=== PATIENT | female | born 1995 | race African-American/Black ===

== ENCOUNTER 2025-04-26 00:44 | Emergency (ER) | payer MEDICAID ==
[~2025-04-26] VITALS: Ht 162.6 cm; Wt 88.0 kg
[2025-04-26 01:07] VITALS: O2SAT 100
[2025-04-26] MEDS: CEFTRIAXONE SODIUM 500MG VIAL IM ONE (02:02)
[2025-04-26] MEDS ORDERED: HYDR28CR97 TP (03:21)
[2025-04-26] MEDS ORDERED: DOXY100C5 MT (03:21)
[2025-04-26 03:29] LABS: CLARITY URINE CLEAR (CLEAR); COLOR URINE YELLOW (YELLOW); GLUCOSE URINE NEGATIVE (NEGATIVE); KETONES URINE 2+ (NEGATIVE); LEUKOCYTE ESTERASE URINE NEGATIVE (NEGATIVE); NITRITE URINE NEGATIVE (NEGATIVE); OCCULT BLOOD URINE NEGATIVE (NEGATIVE); PH URINE 5.5 (4.5-8.0); PROTEIN URINE NEGATIVE (NEGATIVE); SPECIFIC GRAVITY URINE 1.010 (1.005-1.030); UROBILINOGEN URINE 1.0 E.U./dL (0.2-1.0)
[2025-04-26 03:58] VITALS: BP 144/100; PULSE 71; RESP 16; TEMP 36.7; O2SAT 99
[2025-04-29 04:07] LABS: CHLAMYDIA TRACHOMATIS NAA Negative (Negative); NEISSERIA GONORRHOEAE NAA Negative (Negative)
== END 2025-04-26 04:01 | disposition home or self-care (01) ==
LOC: ER 00:44
DX: L70.8 Other acne (principal); Z11.3 Encounter for screening for infections with a predominantly sexual mode of transmission; Z79.899 Other long term (current) drug therapy
CPT/HCPCS: 99283; 87491; 87591; 81003; 96372; J0696